=== PATIENT | male | born 2000 | race Caucasian/White ===

== ENCOUNTER 2025-04-30 17:16 | Emergency (ER) | payer OTHER ==
[~2025-04-30] VITALS: Ht 170.2 cm; Wt 68.0 kg
[2025-04-30 17:23] VITALS: O2SAT 100
[2025-04-30] MEDS: LACTATED RINGERS 1,000 ML IV ONE (17:43)
[2025-04-30 17:53] LABS: BASOPHILS % 0.6 % (0.0-2.0); EOSINOPHILS % 0.3 % (0.0-5.0); HEMATOCRIT. 45.2 % (42.0-52.0); HEMOGLOBIN. 15.0 g/dL (14.0-18.0); LYMPHOCYTES % 26.3 % (20.0-50.0); MEAN PLATELET VOLUME 9.1 fl (7.4-10.4); MONOCYTES % 4.9 % (2.0-8.0); NEUTROPHILS % 67.9 % (40.0-76.0); PLATELET 144 x1000/uL (130-400); RED BLOOD CELL COUNT 5.23 mill/uL (4.7-6.1); RED CELL DISTRIBUTION WIDTH 13.3 % (11.6-14.6)
[2025-04-30 18:02] LABS: CREATININE 1.2 mg/dL (0.6-1.3)
[2025-04-30 18:03] LABS: TROPONIN I HIGH SENSITIVITY < 4 ng/L (3.0-53); UREA NITROGEN BLOOD 10 mg/dL (9-23)
[2025-04-30 18:04] LABS: ASPARTATE AMINOTRANSFERASE 10 IU/L (<34)
[2025-04-30 18:05] LABS: BILIRUBIN DIRECT 0.2 mg/dL (<=3.0); BILIRUBIN TOTAL 0.6 mg/dL (0.1-1.0); PROTEIN TOTAL 6.7 g/dL (6.0-8.3)
[2025-04-30] MEDS: INSULIN LISPRO 100 UNITS/ML SUBCUT ONE (18:41)
[2025-04-30 19:11] LABS: BG DEOXYHEMOGLOBIN 30.5 % (0.0-5.0)
[2025-04-30 19:56] VITALS: BP 112/68; PULSE 75; RESP 23; TEMP 36.7; O2SAT 98
== END 2025-04-30 19:59 | disposition home or self-care (01) ==
LOC: ER 17:16
DX: E10.65 Type 1 diabetes mellitus with hyperglycemia (principal); R55 Syncope and collapse; Z79.4 Long term (current) use of insulin
CPT/HCPCS: 99285; 96360; 71045; 80076; 80048; 82010; 82550; 82962; 83880; 83735; 83930; 85025; 84484; 36415; 82375; 82803; 93005; 96372; J1815; J7120